=== PATIENT | female | born 1950 | race Caucasian/White ===

== ENCOUNTER 2025-04-04 18:56 | Emergency (ER) | payer MEDICARE, SELFPAY ==
[2025-04-04 19:00] VITALS: BP 169/92
[2025-04-04 19:31] LABS: % Eosinophils 1.6 % (0-6); % Immature Granulocytes 0.3 % (0-0.5); % Lymphocytes 32.7 % (20.5-51.1); % Monocytes 7.7 % (1.7-9.3); % Neutrophils 56.7 % (42.2-75.2); Absolute Basophils 0.1 10^3/uL (0-0.2); Absolute Eosinophils 0.1 10^3/uL (0-0.7); Absolute Lymphocytes 2.3 10^3/uL (1.2-3.4); Absolute Monocytes 0.5 10^3/uL (0.1-0.6); Absolute Neutrophils 3.9 10^3/uL (1.4-6.5); Hematocrit 36.9 % (37.0-47.0); Hemoglobin 13.3 g/dL (12.0-16.0); Mean Corpuscular Hgb 30.6 pg (27.0-31.0); Mean Platelet Volume 10.7 fL (7.4-10.4); Nucleated Red Blood Cells % 0 %; Platelet Count 258 10^3/uL (130-400); Red Blood Cell Count 4.34 10^6/uL (4.20-5.40); Red Cell Dist. Width 13.2 % (11.5-14.5); White Blood Cell Count 6.9 10^3/uL (4.8-10.8)
[2025-04-04 19:42] LABS: ALT (SGPT) 26 U/L (0-35); AST (SGOT) 27 U/L (14-36); Albumin 4.7 g/dl (3.5-5.0); Alkaline Phosphatase 91 U/L (38-126); Blood Urea Nitrogen 12 mg/dl (7-17); Carbon Dioxide 24 mmol/L (22-30); Chloride 108 mmol/L (98-107); Glucose 87 mg/dl (70-99); Lipase 116 U/L (23-300); Potassium 3.4 mmol/L (3.5-5.1); Sodium 142 mmol/L (135-145); Total Bilirubin 0.6 mg/dl (0.2-1.3); Total Protein 7.4 g/dl (6.3-8.2); eGFR > 60.00
[2025-04-04 19:52] LABS: Troponin I < 0.012 ng/ml
[2025-04-04 22:26] VITALS: BP 182/115
[2025-04-05 01:00] VITALS: BP 152/62
[2025-04-05 01:03] VITALS: BMI 40.8
--- NOTE | 2025-04-05 01:03 | ED.GENMED ---
History of Present Illness
General
Chief Complaint: Breathing Problem
Source: patient and spouse
Exam Limitations: none
Time Seen by Provider: 04/05/25 00:41
Nursing documentation reviewed up to this point in time: agreed with
History of Present Illness
History of Present Illness:
74-year-old female presents emergency department due to shortness of breath chest tightness. She denies any chest pain or back pain at this time. No aggravating relieving factors. She states her main symptoms are shortness of breath.
Past History
Past History
ED Past Medical History: Asthma, COPD and Hypercholesterolemia
ED Past Surgical History: Appendectomy and Other (Cataracts)
Social History
Tobacco: Former smoker
Alcohol: None
Drug: None
Personal:
Living: with family
Review of Systems
Review of Systems
Allergies reviewed?: Yes
All Other Systems: Not applicable
Constitutional: Reports no symptoms
EENT: Reports no symptoms
Respiratory: Reports cough and trouble breathing
Cardiac: Reports chest pain
ABD/GI: Reports no symptoms
: Reports no symptoms
Musculoskeletal: Reports no symptoms
Skin: Reports no symptoms
Neurological: Reports no symptoms
Endocrine: Reports no symptoms
Hematologic/Lymphatic: Reports no symptoms
Psychiatric: Reports no symptoms
Phy Exam
Physical Exam
Physical Exam:
Physical Exam
General: no apparent distress, not acutely ill
Neck: supple. no meningeal signs. normal posterior pharynx
Heart: s1/s2 regular rate and rhythm, no murmur. equal radial
pulses.
HEENT: Pupils equal round reactive to light, EOMI
Lungs: Decreased breath sounds at bases
Abdomen: normal bowel sounds. not tender. no CVAT
Neuro: alert and oriented. no focal neurological deficits cranial nerves II through XII intact
Skin: no rash
Psychiatric: well kept. interactive and cooperative
Extremities: no edema. no calf tenderness. negative homans. good distal pulses
Scores
Heart Failure Risk
Heart Failure Risk Score: Not Applicable
Course
Orders/Labs/Results
Orders:
Orders
04/04/25 19:03
Electrocardiogram (*1) Urgent
Reason for Study: Chest Pain
CR Chest - 2 Views Urgent
Comment:
Reason For Exam: SOB
04/04/25 19:04
EKG- Treatment ONCE
04/04/25 19:15
Complete Blood Count/With Diff Urgent
Comprehensive Metabolic Panel Urgent
Lipase Urgent
NT-proBNP Urgent
Troponin I Urgent
04/05/25 01:02
Ipratropium/Albuterol Sulfate [Duoneb] 3 ml INH R NOW STA
04/05/25 01:41
Ipratropium/Albuterol Sulfate [Duoneb] 3 ml INH R NOW STA
Prednisone [Deltasone] 50 mg PO NOW STA
Abnormal Lab Results
04/04/25
19:15
Hct 36.9 L %
(37.0-47.0)
MPV 10.7 H fL
(7.4-10.4)
Potassium 3.4 L mmol/L
(3.5-5.1)
Chloride 108 H mmol/L
(98-107)
Creatinine 0.5 L mg/dL
(0.6-1.0)
04/04/25 19:15
04/04/25 19:15
Vital Signs
Initial and Last Documented VS:
Initial Vital Signs
Temp Pulse Resp BP Pulse Ox
98.9 F 83 18 169/92 95
04/04/25 19:00 04/04/25 19:00 04/04/25 19:00 04/04/25 19:00 04/04/25 19:00
Last Documented Vital Signs
Temp Pulse Resp BP Pulse Ox
98.0 F 67 18 137/67 97
04/05/25 01:00 04/05/25 01:58 04/05/25 01:00 04/05/25 01:58 04/05/25 01:58
MDM/Problems Addressed
Differential Diagnosis Includes:
ACS, PE, COPD exacerbation, pneumonia
MDM/Problems Addressed:
74-year-old female with COPD exacerbation. Doubt PE or ACS. No signs of pneumonia. Improved after DuoNeb. Discharged with course of prednisone. Albuterol prescription given.
Chronic conditions affecting care: COPD
Acute Exacerbation and/or Progression of Chronic Illness: COPD
*Radiology
Radiology exam reviewed: radiology read reviewed (Chest x-ray no acute findings)
*Pulse Oximetry
Patient hypoxic: no
*EKG
Interpreted by ED Provider?: Yes
EKG Intrepretation Date: 04/04/25
EKG Intrepretation Time: 19:08
Interpretation: abnormal
Comparison EKG: no comparison EKG present
Heart Rate: 79
Rate: normal
Rhythm: sinus
Dana: normal axis
QRS Pattern: normal QRS
Ischemia: no ischemia
*Hoop Driving Machine Operator Helper Interpretation
Rate: Hoop Driving Machine Operator Helper- N/A
*Critical Care Note
Total Time (30-74mins, 75-104mins- exclusive of procedures): Not Applicable
Data Reviewed
Further Testing Considered But Not Given:
CT chest not indicated
Patient Management
Social determinants of health affecting care: Living situation and Strong social support
Escalation/DeEscalation of care consider admission/obs:
Admit not indicated
ED Attending Note
-
Portions of this chart may have been created with voice recognition software.� Occasional wrong word or��sound alike� substitutions may have occurred due to the inherent limitations of voice recognition software.
Discharge Plan
Departure
Patient Disposition: Home (Routine Discharge)
Date of Disposition: 04/05/25
Time of Disposition: 01:48
Patient with high blood pressure during this ER visit?: Yes
Condition: Good
Discharge Problem:
Acute exacerbation of chronic obstructive pulmonary disease
Instructions: COPD exacerbation in adults - ED discharge instructions, BLOOD PRESSURE
Prescriptions:
New
albuterol sulfate 2.5 mg /3 mL (0.083 %) solution for nebulization
2.5 mg inhalation Q4H PRN (Reason: shortness of breath or wheezing) Qty: 75 0RF
prednisone 50 mg tablet
50 mg PO DAILY Qty: 5 0RF
Interventions
Interventions:
*Risk Screen - Suicide Last Done: 04/04/25 19:00
*General Assessment Last Done: 04/04/25 19:00
*Neglect/Abuse Screening Last Done: 04/05/25 02:40
*ED- Fall Risk Assessment Last Done: 04/05/25 01:07
*ED COVID-19 Vaccine History Last Done: 04/05/25 01:07
*Nursing Disposition Last Done: 04/05/25 02:40
ED- Cardiac Assessment Last Done: 04/05/25 01:08
ED- Pulmonary Assessment Last Done: 04/05/25 01:08
Discharge Date and Time
Print Language: [id number]
[2025-04-05] MEDS: DUONEB 3 ML INH ×2 (01:13→01:45)
[2025-04-05] MEDS: DELTASONE 50 MG PO (01:45)
[2025-04-05 01:58] VITALS: BP 137/67
== END 2025-04-05 02:40 | disposition home or self-care (01) ==
LOC: EMR 18:56
PROVIDERS: Emergency Medicine; EMERGENCY PHYSICIAN Emergency Medicine; FAMILY PHYSICIAN Family Medicine
DX: J44.1 Chronic obstructive pulmonary disease with (acute) exacerbation (principal); E78.00 Pure hypercholesterolemia, unspecified; Z87.891 Personal history of nicotine dependence; Z90.49 Acquired absence of other specified parts of digestive tract
CPT/HCPCS: 99284; 94640; 71046; 80053; 83690; 83880; 84484; 85025; 93005